=== PATIENT | female | born 1995 | race Asian ===

== ENCOUNTER 2021-04-22 15:52 | Emergency (ER) | payer OTHER, BC ==
[~2021-04-22] VITALS: Ht 162.6 cm; Wt 74.8 kg
[~2021-04-22 15:52] MED LIST: BIRTH CONTROL; HYDHCL25 PO
[2021-04-23 09:11] LABS: HCV ANTIBODY <0.1 (0.0-0.9); HIV SCREEN 4TH GENERATION WRFX Non Reactive (Non Reactive)
== END 2021-04-22 17:09 | disposition home or self-care (01) ==
LOC: ER 15:52
PROVIDERS: Physician Assistant
DX: Z77.21 Contact with and (suspected) exposure to potentially hazardous body fluids (principal)
CPT/HCPCS: 36415; 84460; 86317; 86803; 87389; 99283